=== PATIENT | female | born 1990 | race Two or more races ===

== ENCOUNTER 2017-10-31 15:48 | Emergency (ER) | payer BC, OTHER ==
[~2017-10-31] VITALS: Ht 165.1 cm; Wt 55.3 kg
[~2017-10-31 15:48] MED LIST: AUGMENTIN 875-1 EACH PO; IBUPROFEN600 MG PO; IBUPROFEN800 MG PO; NITROFURANTOIN100 M2 ORAL; NKM; NORCO 5-325 TA1 EACH PO
[2017-10-31 16:07] VITALS: BP 123/74
[2017-10-31] MEDS ORDERED: TYLENOL EXTRA500 MG ORAL (16:11)
[2017-10-31] MEDS ORDERED: AMOXICILLIN500 MG ORAL (16:11)
--- NOTE | 2017-10-31 16:12 | Emergency Room Report ---
History of Present Illness General Chief Complaint: Sore Throat Source: Patient Present Illness HPI 27-year-old female patient presents to ER complaining of sore throat 1 day. Patient reports that she saw lights of the back of the throat looked online and she had strep throat. Patient reports pain with swallowing. Patient also complains of nausea and fever symptoms. States that she has not taken any medication for relief of symptoms. Denies vomiting diarrhea. Denies chest pain , shortness breath, cough, other acute symptoms. Denies abdominal pain. Denies contacts with similar symptoms. Denies history of strep throat. Allergies: Coded Allergies: No Known Allergies (Unverified , 02/06/12) Patient History Past Medical History: see triage record Last Menstrual Period: 10/25/17 Reviewed Nursing Documentation: PMH: Agreed; PSxH: Agreed Nursing Documentation-PM Past Medical History: No Stated History Hx Cardiac Problems: No - LEFT SHOULDER SURGARY Hx Cancer: No Hx Gastrointestinal Problems: No Review of Systems All Other Systems: negative except mentioned in HPI Physical Exam Vital Signs Date Time Temp Pulse Resp B/P (MAP) Pulse Ox O2 Delivery O2 Flow Rate FiO2 10/31/17 15:54 100.7 82 18 123/74 95 Room Air 100.8 Sp02 EP Interpretation: reviewed, normal General Appearance: well appearing, no apparent distress, alert, GCS 15, non- toxic Head: normocephalic, atraumatic Eyes: bilateral eye normal inspection, bilateral eye PERRL ENT: hearing grossly normal, normal pharynx, no angioedema, normal voice, TMs + canals normal, uvula midline, moist mucus membranes, tonsillar swelling, pharyngeal erythema, tonsillar exudate - right side, other - no uvula deviation , no stridor, no drooling, no potato voice Neck: full range of motion, no meningismus Respiratory: lungs clear, normal breath sounds, no rhonchi, no respiratory distress, no accessory muscle use, no wheezing, speaking full sentences, other - no stridor Cardiovascular #1: regular rate, rhythm, no edema Gastrointestinal: non tender, soft, no mass, non-distended, no guarding, no rebound Neurologic: alert, oriented x3, responsive, motor strength/tone normal, sensory intact Psychiatric: mood/affect normal Skin: no rash Lymphatic: adenopathy - cervical right side Medical Decision Making PA Attestation Dr. Silverman is my supervising Physician whom patient management has been discussed with. Diagnostic Impression: Primary Impression: Pharyngitis ER Course Pt presents to ED c/o sore throat and fever. DDX considered but are not limited to pharyngitis, laryngitis, URI, peritonsillar abscess, tonsillitis. Low suspicion for peritonsillar abscess, no neck stiffness, no hot potato voice , no stridor. Does not require imaging at this time. VITAL SIGNS are WNL, patient is afebrile. Will provide Tylenol for fever and continue to monitor patient. Patient nontoxic appearing, in no acute distress. ORDERS: -Tylenol -Viscous Lidocaine ER COURSE: patient denies cough at onset of symptoms, has fever and exudates on tonsils, lymphadenopathy, erythema as well. Presentation consistent with pharyngitis. Will provide antibiotics for treatment at home. Follow-up with PCP for further testing as needed. Take Tylenol for pain and fever symptoms. Saltwater gargles. Work note provided. ER precautions given. DISCHARGE: Rx provided for Amoxicillin Rx provided for Tylenol for pain and fever symptoms At this time pt is stable for d/c to home. Patient is resting comfortably, in no acute distress, nontoxic appearing, talking without difficulty. Will provide with patient care instructions and any necessary prescriptions. Patient to take medication as instructed. Care plan and follow-up instructions provided. Patient questions asked and answered. Patient instructed to follow-up with primary care provider in 3 - 5 days. ER precautions given. Patient instructed to return to ER immediately for any new or worsening of symptoms including but not limited to intractable vomiting, difficulty breathing, inability to eat. - Please note that this Emergency Department Report was dictated using [employer] detail draftsperson technology software, occasionally this can lead to erroneous entry secondary to interpretation by the dictation equipment. Last Vital Signs Date Time Temp Pulse Resp B/P (MAP) Pulse Ox O2 Delivery O2 Flow Rate FiO2 10/31/17 15:54 100.7 82 18 123/74 95 Room Air 100.8 Disposition: HOME, SELF-CARE Condition: Stable Scripts Acetaminophen* (TYLENOL EXTRA STRENGTH*) 500 Mg Tablet 500 MG ORAL Q8H PRN for Prn Headache/Temp > 101, #30 TAB 0 Refills Prov: Reg Patrick 10/31/17 Amoxicillin* (AMOXIL*) 500 Mg Capsule 500 MG ORAL EVERY 8 HOURS for 7 Days, #21 CAP Prov: Reg Patrick 10/31/17 Patient Instructions: Pharyngitis, [id number] Additional Instructions: Followup with primary care provider in 3 -5 days. Salt water gargles Rx provided for Tylenol for pain and fever symptoms Rx provided for Amoxicillin. Return to ER if rash develops following medication use. Drink plenty of water. Take medications as directed. Patient questions asked and answered. ER precautions given, patient instructed to return to ER immediately for any new or worsening of symptoms including but not limited to intractable vomiting, difficulty breathing, inability to eat. Reg Patrick Oct 31, 2017 16:12
[2017-10-31 16:15] VITALS: BP 123/74
[2017-10-31] MEDS ORDERED: Lidocaine 2% Visc 15ml soln ORAL ONE (16:15)
[2017-10-31] MEDS ORDERED: Acetaminophen 500mg (ES) tab ORAL ONE (16:15)
== END 2017-10-31 16:30 | disposition home or self-care (01) ==
LOC: EMR 16:18
DX: J02.9 Acute pharyngitis, unspecified (principal)
CPT/HCPCS: 99284